=== PATIENT | male | born 1985 | race African-American/Black ===

== ENCOUNTER 2024-01-26 10:46 | Emergency (ER) | payer OTHER ==
[~2024-01-26] VITALS: Ht 180.3 cm; Wt 111.1 kg
[~2024-01-26 10:46] MED LIST: ONDA4TAB5 PO; OXYC-128 PO
[2024-01-26 11:08] VITALS: O2SAT 100
[2024-01-26] MEDS ORDERED: ACETAMINOPHEN 500 MG TABLET ONE (11:55)
[2024-01-26] MEDS ORDERED: IBUPROFEN 400 MG TABLET ONE (11:56)
[2024-01-26] MEDS: IBUPROFEN 400 MG TABLET PO ONE (11:56)
[2024-01-26] MEDS: ACETAMINOPHEN 500 MG TABLET PO ONE (11:56)
== END 2024-01-26 12:14 | disposition home or self-care (01) ==
LOC: ER 10:46
DX: S50.02XA Contusion of left elbow, initial encounter (principal); S60.031A Contusion of right middle finger without damage to nail, initial encounter; Z79.899 Other long term (current) drug therapy; Z88.7 Allergy status to serum and vaccine; W01.0XXA Fall on same level from slipping, tripping and stumbling without subsequent striking against object, initial encounter; Y93.89 Activity, other specified; Y92.89 Other specified places as the place of occurrence of the external cause; Y99.8 Other external cause status
CPT/HCPCS: 73060; 73070; 73140; A4606; A4663; A9150